=== PATIENT | female | born 1985 | race Caucasian/White ===

== ENCOUNTER 2017-04-14 20:11 | Emergency (ER) | payer OTHER ==
[2017-04-14 23:19] LABS: URINE BLOOD (Dip) POC Negative (NEGATIVE); URINE KETONES (Dip) POC Negative (NEGATIVE); URINE LEUKOCYTE EST (Dip) POC 2+ (NEGATIVE); URINE NITRITE (Dip) POC Negative (NEGATIVE); URINE TOTAL PROTEIN POC Negative (NEGATIVE)
[2017-04-14] MEDS: CEFTRIAXONE 1 GM INJ IM (23:57)
== END 2017-04-15 00:26 | disposition home or self-care (01) ==
LOC: FTE 04-15 00:26
DX: N30.00 Acute cystitis without hematuria (principal)
CPT/HCPCS: 81003; 96372; 99284-25

== ENCOUNTER 2017-09-25 02:05 | Emergency (ER) | payer OTHER ==
[2017-09-25] MEDS: ONDANSETRON 4 MG INJ IV (04:06)
[2017-09-25] MEDS: KETOROLAC 30 MG INJ IV (04:06)
[2017-09-25] MEDS: SOD CHLORIDE 0.9% 1,000 ML IV (04:07)
[2017-09-25 04:54] LABS: ADD MAN DIFF? NO
[2017-09-25 04:57] LABS: BASOPHILS % 0.3 % (0.0-2.0); EOSINOPHILS # 0.1 10^3/ul (0.0-0.5); EOSINOPHILS % 0.7 % (0.0-7.0); HEMATOCRIT 41.2 % (37.0-47.0); HEMOGLOBIN 13.6 g/dl (12.0-16.0); LYMPHOCYTES # 3.1 10^3/ul (0.8-2.9); LYMPHOCYTES % 26.2 % (15.0-51.0); MEAN CORPUSCULAR HEMOGLOBIN 29.7 pg (29.0-33.0); MONOCYTE # 0.5 10^3/ul (0.3-0.9); MONOCYTES % 4.6 % (0.0-11.0); NEUTROPHIL # 7.9 10^3/ul (1.6-7.5); NEUTROPHILS % 67.9 % (39.0-77.0); PLATELET COUNT 322 10^3/UL (140-415); RED BLOOD COUNT 4.58 10^6/ul (4.20-5.40); RED CELL DISTRIBUTION WIDTH 13.5 % (11.5-14.5)
[2017-09-25 04:57] LABS: WHITE BLOOD COUNT 11.7 10^3/ul (4.8-10.8)
[2017-09-25 05:13] LABS: ALANINE AMINOTRANSFERASE 134 IU/L (13-69); ALBUMIN 4.6 g/dl (3.3-4.9); ALBUMIN/GLOBULIN RATIO 1.39; ALKALINE PHOSPHATASE 90 IU/L (42-121); AMYLASE 55 U/L (11-123); ANION GAP 19 (8-16); ASPARTATE AMINO TRANSFERASE 103 IU/L (15-46); BILIRUBIN,INDIRECT 0.9 mg/dl (0-1.1); BILIRUBIN,TOTAL 0.9 mg/dl (0.2-1.3); BLOOD UREA NITROGEN 12 mg/dl (7-20); CALCIUM 10.2 mg/dl (8.4-10.2); CARBON DIOXIDE 24 mmol/L (21-31); CHLORIDE 102 mmol/L (97-110); CREATININE 0.58 mg/dl (0.44-1.00); GLUCOSE 200 mg/dl (70-220); LIPASE 107 U/L (23-300); POTASSIUM 3.9 mmol/L (3.5-5.1); SODIUM 141 mmol/L (135-144); TOTAL PROTEIN 7.9 g/dl (6.1-8.1)
[2017-09-25 05:23] LABS: ADD UMIC YES; UR ASCORBIC ACID NEGATIVE (NEGATIVE); UR BACTERIA MODERATE /HPF (NONE SEEN); UR BILIRUBIN (Dip) NEGATIVE (NEGATIVE); UR BLOOD (Dip) 2+ mg/dL (NEGATIVE); UR CLARITY SLIGHTLY CLOUDY (CLEAR); UR COLOR AMBER (YELLOW); UR GLUCOSE (Dip) NEGATIVE (NEGATIVE); UR KETONES (Dip) NEGATIVE (NEGATIVE); UR LEUKOCYTE ESTERASE (Dip) 3+ Leu/ul (NEGATIVE); UR NITRITE (Dip) POSITIVE (NEGATIVE); UR NONSQUAMOUS EPITHELIAL CELL 1 /HPF (NONE SEEN); UR RBC 7 /HPF (0-5); UR SPECIFIC GRAVITY (Dip) 1.003 (1.003-1.030); UR TOTAL PROTEIN (Dip) NEGATIVE (NEGATIVE); UR UROBILINOGEN (Dip) NEGATIVE (NEGATIVE); UR WBC > 182 /HPF (0-5)
[2017-09-25 05:31] LABS: INR 0.85; PROTIME 11.7 Sec (11.9-14.9); PT RATIO 0.9
[2017-09-25 05:38] LABS: TROPONIN-I < 0.010 ng/ml (0.000-0.120)
== END 2017-09-25 06:52 | disposition home or self-care (01) ==
LOC: FTE 02:05
DX: N39.0 Urinary tract infection, site not specified (principal); E11.9 Type 2 diabetes mellitus without complications; R10.2 Pelvic and perineal pain; Z79.84 Long term (current) use of oral hypoglycemic drugs
CPT/HCPCS: 36415; 74176; 76705; 80053; 81001; 81025; 82150; 83690; 84484; 85025; 85610; 85730; 87086; 93005; 96361; 96374; 96375; 99285-25

== ENCOUNTER 2017-12-17 04:07 | Emergency (ER) | payer OTHER ==
[2017-12-17] MEDS: ACETAMINOPHEN 325 MG TAB PO (05:29)
[2017-12-17] MEDS ORDERED: DEXAMETHASONE 10 MG/ML 1 ML INJ IM (05:30)
[2017-12-17] MEDS: DIPHENHYDRAMINE 50 MG INJ IM (05:30)
[2017-12-17] MEDS: DEXAMETHASONE 10 MG/ML 1 ML INJ IM (05:41)
== END 2017-12-17 06:25 | disposition home or self-care (01) ==
LOC: FTE 04:07
DX: S50.862A Insect bite (nonvenomous) of left forearm, initial encounter (principal); E11.9 Type 2 diabetes mellitus without complications; W57.XXXA Bitten or stung by nonvenomous insect and other nonvenomous arthropods, initial encounter; Y92.9 Unspecified place or not applicable
CPT/HCPCS: 96372; 99284-25

== ENCOUNTER 2017-12-30 18:30 | Emergency (ER) | payer OTHER ==
[2017-12-30 20:15] LABS: URINE BLOOD (Dip) POC 3+ (NEGATIVE); URINE KETONES (Dip) POC Trace (NEGATIVE); URINE LEUKOCYTE EST (Dip) POC 2+ (NEGATIVE); URINE NITRITE (Dip) POC Negative (NEGATIVE); URINE TOTAL PROTEIN POC Negative (NEGATIVE)
[2017-12-30] MEDS: HYDROCODONE/APAP (5/325) TAB PO (20:18)
[2017-12-30] MEDS: ACETAMINOPHEN 500 MG TAB PO (20:18)
[2017-12-30] MEDS ORDERED: IBUPROFEN 800 MG TAB PO (20:30)
[2017-12-30] MEDS ORDERED: ACETAMINOPHEN 325 MG TAB PO (20:30)
[2017-12-30] MEDS: CEFTRIAXONE 1 GM INJ IM (20:38)
== END 2017-12-30 20:53 | disposition home or self-care (01) ==
LOC: FTE 18:30
DX: N10 Acute pyelonephritis (principal); E11.9 Type 2 diabetes mellitus without complications
CPT/HCPCS: 81003; 81025; 96372; 99284-25

== ENCOUNTER 2017-12-31 15:29 | Inpatient (IN) | payer OTHER ==
[2017-12-31 16:57] LABS: ADD MAN DIFF? NO
[2017-12-31 16:58] LABS: ADD UMIC YES; UR ASCORBIC ACID NEGATIVE (NEGATIVE); UR BILIRUBIN (Dip) NEGATIVE (NEGATIVE); UR BLOOD (Dip) 2+ mg/dL (NEGATIVE); UR CLARITY SLIGHTLY CLOUDY (CLEAR); UR COLOR YELLOW (YELLOW); UR GLUCOSE (Dip) 1+ mg/dL (NEGATIVE); UR KETONES (Dip) NEGATIVE (NEGATIVE); UR LEUKOCYTE ESTERASE (Dip) 1+ Leu/ul (NEGATIVE); UR NITRITE (Dip) NEGATIVE (NEGATIVE); UR RBC 12 /HPF (0-5); UR SQUAMOUS EPITHELIAL CELL FEW /HPF (FEW); UR TOTAL PROTEIN (Dip) NEGATIVE (NEGATIVE); UR UROBILINOGEN (Dip) NEGATIVE (NEGATIVE); UR WBC 31 /HPF (0-5)
[2017-12-31] MEDS: IBUPROFEN 800 MG TAB PO (16:59)
[2017-12-31] MEDS: ACETAMINOPHEN 325 MG TAB PO (16:59)
[2017-12-31] MEDS: morphine 4 MG/ML VIAL IV (16:59)
[2017-12-31 17:00] LABS: WHITE BLOOD COUNT 14.4 10^3/ul (4.8-10.8)
[2017-12-31 17:00] LABS: BASOPHILS % 0.1 % (0.0-2.0); EOSINOPHILS % 0.1 % (0.0-7.0); HEMOGLOBIN 11.7 g/dl (12.0-16.0); LYMPHOCYTES # 1.2 10^3/ul (0.8-2.9); LYMPHOCYTES % 8.1 % (15.0-51.0); MEAN CORPUSCULAR HEMOGLOBIN 29.5 pg (29.0-33.0); MEAN CORPUSCULAR HGB CONC 32.5 g/dl (32.0-37.0); MEAN CORPUSCULAR VOLUME 90.9 fl (82.0-101.0); MEAN PLATELET VOLUME 10.2 fl (7.4-10.4); MONOCYTES % 6.7 % (0.0-11.0); NEUTROPHIL # 12.2 10^3/ul (1.6-7.5); NEUTROPHILS % 84.5 % (39.0-77.0); PLATELET COUNT 273 10^3/UL (140-415); RED BLOOD COUNT 3.96 10^6/ul (4.20-5.40); RED CELL DISTRIBUTION WIDTH 12.8 % (11.5-14.5)
[2017-12-31] MEDS: CEFTRIAXONE 1 GM/50 ML (PMX) 50 ML IVPB (17:00)
[2017-12-31] MEDS: SODIUM CHLORIDE 0.9% 1L BAG IV* (17:00)
[2017-12-31] MEDS: ONDANSETRON 4 MG INJ IV ×2 (17:00→20:05)
[2017-12-31 17:18] LABS: ALANINE AMINOTRANSFERASE 50 IU/L (13-69); ALBUMIN/GLOBULIN RATIO 1.37; ALKALINE PHOSPHATASE 95 IU/L (42-121); ANION GAP 12 (5-13); ASPARTATE AMINO TRANSFERASE 20 IU/L (15-46); BILIRUBIN,INDIRECT 0.5 mg/dl (0-1.1); BILIRUBIN,TOTAL 0.5 mg/dl (0.2-1.3); BLOOD UREA NITROGEN 6 mg/dl (7-20); CALCIUM 9.1 mg/dl (8.4-10.2); CARBON DIOXIDE 24 mmol/L (21-31); CHLORIDE 101 mmol/L (97-110); CREATININE 0.64 mg/dl (0.44-1.00); Estimated GFR > 60 mL/min (>60); GLUCOSE 212 mg/dl (70-220); LIPASE 27 U/L (23-300); POTASSIUM 3.9 mmol/L (3.5-5.1); SODIUM 137 mmol/L (135-144); TOTAL PROTEIN 6.9 g/dl (6.1-8.1)
[2017-12-31 17:19] LABS: INR 1.04; PROTIME 13.7 Sec (11.9-14.9); PT RATIO 1.1
[2017-12-31 17:20] LABS: AMYLASE < 30 U/L (11-123); PARTIAL THROMBOPLASTIN TIME 29.2 Sec (23.0-35.0)
[2017-12-31] MEDS ORDERED: ACETAMINOPHEN 325 MG TAB PO (18:30)
[2017-12-31] MEDS ORDERED: ALBUTEROL/IPRATROPIUM (NEB) 3 ML AMP HHN (18:30)
[2017-12-31] MEDS ORDERED: NACL 0.9% 3 ML SYG IV (18:30)
[2017-12-31] MEDS ORDERED: ONDANSETRON 4 MG INJ IV (18:30)
[2017-12-31] MEDS ORDERED: DOCUSATE SODIUM 100 MG CAP PO (18:30)
[2017-12-31] MEDS ORDERED: NA PHOSPHATE/BIPHOS 133 ML ENEMA PR (18:30)
[2017-12-31] MEDS ORDERED: MAGNESIUM HYDROXIDE 30ML CUP PO (18:30)
[2017-12-31] MEDS ORDERED: LORAZEPAM 2 MG INJ IV (18:30)
[2017-12-31] MEDS ORDERED: hydrALAzine 20 MG INJ IV (18:30)
[2017-12-31] MEDS ORDERED: GLUCAGON 1 MG INJ IM (19:00)
[2017-12-31] MEDS ORDERED: GLUCOSE GEL 15 GRAM TUBE PO ×2 (19:00)
[2017-12-31] MEDS ORDERED: DEXTROSE 50% 50 ML SYRINGE IV ×2 (19:00)
[2017-12-31] MEDS ORDERED: GLUCOSE GEL 15 GRAM TUBE BUCCAL (19:00)
[2017-12-31 19:06] LABS: FREE T4 (FREE THYROXINE) 0.98 ng/dl (0.79-2.35)
[2017-12-31] MEDS: morphine 2 MG INJ IV (20:05)
[2017-12-31] MEDS ORDERED: HEPARIN 5,000 UNIT/0.5 ML VIAL (21:32)
[2017-12-31] MEDS: HEPARIN 5,000 UNIT/1 ML VIAL SC (21:38)
[2017-12-31] MEDS: INSULIN ASPART [NOVOLOG] 3 ML PEN SC (21:38)
[2017-12-31] MEDS ORDERED: PIPER-TAZO 3.375 GM IV (PMX) 100 ML (22:57)
[2017-12-31] MEDS: PIPER-TAZO 3.375 GM IV (PMX) 100 ML IVPB (23:01)
[2017-12-31] MEDS: HYDROCODONE/APAP (5/325) TAB PO (23:01)
[2017-12-31] MEDS: SOD CHLORIDE 0.9% 1,000 ML IV (23:02)
[2018-01-01] MEDS: ACCU-CHEK XX (02:00)
[2018-01-01] MEDS: HYDROCODONE/APAP (5/325) TAB PO ×2 (04:07→08:41)
[2018-01-01 05:46] LABS: ADD MAN DIFF? NO
[2018-01-01 05:53] LABS: BASOPHILS % 0.2 % (0.0-2.0); EOSINOPHILS % 0.2 % (0.0-7.0); HEMATOCRIT 33.1 % (37.0-47.0); HEMOGLOBIN 10.5 g/dl (12.0-16.0); LYMPHOCYTES # 1.2 10^3/ul (0.8-2.9); LYMPHOCYTES % 11.2 % (15.0-51.0); MEAN CORPUSCULAR HEMOGLOBIN 29.7 pg (29.0-33.0); MEAN CORPUSCULAR HGB CONC 31.7 g/dl (32.0-37.0); MEAN CORPUSCULAR VOLUME 93.8 fl (82.0-101.0); MEAN PLATELET VOLUME 10.6 fl (7.4-10.4); MONOCYTE # 0.7 10^3/ul (0.3-0.9); MONOCYTES % 6.7 % (0.0-11.0); NEUTROPHIL # 8.7 10^3/ul (1.6-7.5); PLATELET COUNT 237 10^3/UL (140-415); RED BLOOD COUNT 3.53 10^6/ul (4.20-5.40); RED CELL DISTRIBUTION WIDTH 13.1 % (11.5-14.5)
[2018-01-01 05:53] LABS: WHITE BLOOD COUNT 10.7 10^3/ul (4.8-10.8)
[2018-01-01] MEDS: PANTOPRAZOLE (EC) 40 MG TAB PO (06:06)
[2018-01-01] MEDS: PIPER-TAZO 3.375 GM IV (PMX) 100 ML IVPB ×3 (06:06→17:55)
[2018-01-01 06:17] LABS: CHOL/HDL RATIO 2.6 RATIO; HDL CHOLESTEROL 38 mg/dl (34-82); LDL CHOLESTEROL,CALCULATED 37 mg/dl; TRIGLYCERIDES 125 mg/dl (0-149)
[2018-01-01 06:17] LABS: CHOLESTEROL 100 mg/dl (100-200)
[2018-01-01 06:19] LABS: ANION GAP 9 (5-13); BLOOD UREA NITROGEN 7 mg/dl (7-20); CALCIUM 8.2 mg/dl (8.4-10.2); CARBON DIOXIDE 25 mmol/L (21-31); CHLORIDE 106 mmol/L (97-110); CREATININE 0.67 mg/dl (0.44-1.00); Estimated GFR > 60 mL/min (>60); GLUCOSE 243 mg/dl (70-220); MAGNESIUM 1.8 mg/dl (1.7-2.5); PHOSPHORUS 2.6 mg/dl (2.5-4.9); POTASSIUM 3.9 mmol/L (3.5-5.1); SODIUM 140 mmol/L (135-144)
[2018-01-01] MEDS: SOD CHLORIDE 0.9% 1,000 ML IV ×3 (07:00→14:04)
[2018-01-01] MEDS ORDERED: HEPARIN 5,000 UNIT/0.5 ML VIAL ×2 (07:52→21:49)
[2018-01-01] MEDS: HEPARIN 5,000 UNIT/1 ML VIAL SC ×2 (08:27→22:11)
[2018-01-01] MEDS: INSULIN ASPART [NOVOLOG] 3 ML PEN SC ×4 (08:27→22:10)
[2018-01-01] MEDS: LORATADINE 10 MG TAB PO (08:29)
[2018-01-01] MEDS: ACETAMINOPHEN 325 MG TAB PO ×2 (13:35→21:57)
[2018-01-01] MEDS: morphine 2 MG INJ IV (18:13)
[2018-01-02] MEDS: SOD CHLORIDE 0.9% 1,000 ML IV ×2 (00:21→10:04)
[2018-01-02] MEDS: PIPER-TAZO 3.375 GM IV (PMX) 100 ML IVPB ×2 (00:21→05:11)
[2018-01-02] MEDS: ACCU-CHEK XX (02:51)
[2018-01-02] MEDS: PANTOPRAZOLE (EC) 40 MG TAB PO (05:11)
[2018-01-02] MEDS: ACETAMINOPHEN 325 MG TAB PO ×2 (05:17→11:32)
[2018-01-02 06:05] LABS: ADD MAN DIFF? NO
[2018-01-02 06:09] LABS: WHITE BLOOD COUNT 8.1 10^3/ul (4.8-10.8)
[2018-01-02 06:09] LABS: BASOPHILS % 0.4 % (0.0-2.0); EOSINOPHILS % 0.1 % (0.0-7.0); HEMATOCRIT 30.1 % (37.0-47.0); HEMOGLOBIN 9.7 g/dl (12.0-16.0); LYMPHOCYTES # 1.7 10^3/ul (0.8-2.9); LYMPHOCYTES % 21.3 % (15.0-51.0); MEAN CORPUSCULAR HEMOGLOBIN 29.7 pg (29.0-33.0); MEAN CORPUSCULAR HGB CONC 32.2 g/dl (32.0-37.0); MEAN PLATELET VOLUME 10.4 fl (7.4-10.4); MONOCYTE # 0.7 10^3/ul (0.3-0.9); MONOCYTES % 8.4 % (0.0-11.0); NEUTROPHIL # 5.6 10^3/ul (1.6-7.5); NEUTROPHILS % 69.3 % (39.0-77.0); PLATELET COUNT 239 10^3/UL (140-415); RED BLOOD COUNT 3.27 10^6/ul (4.20-5.40); RED CELL DISTRIBUTION WIDTH 12.9 % (11.5-14.5)
[2018-01-02 06:34] LABS: INR 1.07; PT RATIO 1.1
[2018-01-02 06:58] LABS: ALANINE AMINOTRANSFERASE 35 IU/L (13-69); ALBUMIN 3.1 g/dl (3.3-4.9); ALBUMIN/GLOBULIN RATIO 1.06; ALKALINE PHOSPHATASE 78 IU/L (42-121); ANION GAP 7 (5-13); ASPARTATE AMINO TRANSFERASE 16 IU/L (15-46); BILIRUBIN,INDIRECT 0.6 mg/dl (0-1.1); BILIRUBIN,TOTAL 0.6 mg/dl (0.2-1.3); BLOOD UREA NITROGEN 4 mg/dl (7-20); CALCIUM 8.7 mg/dl (8.4-10.2); CARBON DIOXIDE 26 mmol/L (21-31); CHLORIDE 107 mmol/L (97-110); CREATININE 0.52 mg/dl (0.44-1.00); Estimated GFR > 60 mL/min (>60); GLUCOSE 181 mg/dl (70-220); PHOSPHORUS 3.5 mg/dl (2.5-4.9); POTASSIUM 3.6 mmol/L (3.5-5.1); SODIUM 140 mmol/L (135-144)
[2018-01-02 07:33] LABS: TROPONIN-I < 0.012 ng/ml (0.000-0.120)
[2018-01-02] MEDS ORDERED: HEPARIN 5,000 UNIT/0.5 ML VIAL (07:57)
[2018-01-02] MEDS: LORATADINE 10 MG TAB PO (08:11)
[2018-01-02] MEDS: INSULIN ASPART [NOVOLOG] 3 ML PEN SC ×2 (08:17→13:24)
[2018-01-02] MEDS: HEPARIN 5,000 UNIT/1 ML VIAL SC (08:17)
[2018-01-02] MEDS: NITROGLYCERIN (SL) 0.4 MG TAB SL (10:31)
[2018-01-02] MEDS: CIPROFLOXACIN 500 MG TAB PO (11:48)
[2018-01-02] MEDS ORDERED: metFORMIN 500 MG TAB PO (18:00)
== END 2018-01-02 14:15 | disposition home or self-care (01) | DRG 872 ==
LOC: FTE 15:29 → 6WM 18:10
DX: A41.9 Sepsis, unspecified organism (principal); N10 Acute pyelonephritis; Z68.43 Body mass index [BMI] 50.0-59.9, adult; E11.65 Type 2 diabetes mellitus with hyperglycemia; E66.9 Obesity, unspecified; Z79.84 Long term (current) use of oral hypoglycemic drugs
CPT/HCPCS: 71045; 74176; 80048; 80053; 80061; 81001; 82150; 82962; 83036; 83605; 83690; 83735; 84100; 84439; 84443; 84484; 84703; 85025; 85610; 85730; 87040; 87086; 87400; 93005; 96365; 96375; 99285-25

== ENCOUNTER 2018-04-20 04:01 | Emergency (ER) | payer OTHER ==
[2018-04-20 05:36] LABS: URINE BLOOD (Dip) POC 3+ (NEGATIVE); URINE GLUCOSE (Dip) POC Negative (NEGATIVE); URINE KETONES (Dip) POC Negative (NEGATIVE); URINE LEUKOCYTE EST (Dip) POC 2+ (NEGATIVE); URINE NITRITE (Dip) POC Negative (NEGATIVE); URINE TOTAL PROTEIN POC 1+ (NEGATIVE)
== END 2018-04-20 05:53 | disposition home or self-care (01) ==
LOC: FTE 04:01
DX: N39.0 Urinary tract infection, site not specified (principal); Z79.84 Long term (current) use of oral hypoglycemic drugs
CPT/HCPCS: 81003; 81025; 99283

== ENCOUNTER 2018-06-04 08:44 | Emergency (ER) | payer SELFPAY, OTHER ==
[2018-06-04] MEDS: ONDANSETRON 4 MG INJ IV (10:01)
[2018-06-04] MEDS: SOD CHLORIDE 0.9% 1,000 ML IV (10:01)
[2018-06-04 10:07] LABS: ADD MAN DIFF? NO
[2018-06-04 10:09] LABS: WHITE BLOOD COUNT 8.8 10^3/ul (4.8-10.8)
[2018-06-04 10:09] LABS: BASOPHILS % 0.5 % (0.0-2.0); EOSINOPHILS # 0.1 10^3/ul (0.0-0.5); EOSINOPHILS % 0.8 % (0.0-7.0); HEMOGLOBIN 10.9 g/dl (12.0-16.0); LYMPHOCYTES # 2.5 10^3/ul (0.8-2.9); LYMPHOCYTES % 28.5 % (15.0-51.0); MEAN CORPUSCULAR HGB CONC 32.1 g/dl (32.0-37.0); MEAN CORPUSCULAR VOLUME 84.4 fl (82.0-101.0); MEAN PLATELET VOLUME 10.6 fl (7.4-10.4); MONOCYTE # 0.4 10^3/ul (0.3-0.9); MONOCYTES % 4.6 % (0.0-11.0); NEUTROPHIL # 5.7 10^3/ul (1.6-7.5); NEUTROPHILS % 64.9 % (39.0-77.0); PLATELET COUNT 349 10^3/UL (140-415); RED BLOOD COUNT 4.03 10^6/ul (4.20-5.40); RED CELL DISTRIBUTION WIDTH 13.2 % (11.5-14.5)
[2018-06-04 10:17] LABS: UR BACTERIA FEW /HPF (NONE SEEN); UR MUCUS FEW /HPF (NONE SEEN); UR RBC > 182 /HPF (0-5); UR SQUAMOUS EPITHELIAL CELL FEW /HPF (FEW); UR WBC 69 /HPF (0-5)
[2018-06-04 10:30] LABS: ALANINE AMINOTRANSFERASE 53 IU/L (13-69); ALBUMIN 4.2 g/dl (3.3-4.9); ALBUMIN/GLOBULIN RATIO 1.27; ALKALINE PHOSPHATASE 93 IU/L (42-121); ANION GAP 11 (5-13); ASPARTATE AMINO TRANSFERASE 41 IU/L (15-46); BILIRUBIN,INDIRECT 0.5 mg/dl (0-1.1); BILIRUBIN,TOTAL 0.5 mg/dl (0.2-1.3); BLOOD UREA NITROGEN 9 mg/dl (7-20); CALCIUM 9.8 mg/dl (8.4-10.2); CARBON DIOXIDE 24 mmol/L (21-31); CHLORIDE 103 mmol/L (97-110); CREATININE 0.49 mg/dl (0.44-1.00); Estimated GFR > 60 mL/min (>60); GLUCOSE 296 mg/dl (70-220); LIPASE 81 U/L (23-300); POTASSIUM 4.1 mmol/L (3.5-5.1); SODIUM 138 mmol/L (135-144); TOTAL PROTEIN 7.5 g/dl (6.1-8.1)
[2018-06-04 10:36] LABS: ADD UMIC YES; UR ASCORBIC ACID NEGATIVE (NEGATIVE); UR BILIRUBIN (Dip) NEGATIVE (NEGATIVE); UR BLOOD (Dip) 3+ mg/dL (NEGATIVE); UR BUDDING YEAST FEW /HPF (NONE SEEN); UR CLARITY SLIGHTLY CLOUDY (CLEAR); UR COLOR YELLOW (YELLOW); UR GLUCOSE (Dip) 3+ mg/dL (NEGATIVE); UR KETONES (Dip) NEGATIVE (NEGATIVE); UR LEUKOCYTE ESTERASE (Dip) NEGATIVE Leu/ul (NEGATIVE); UR NITRITE (Dip) NEGATIVE (NEGATIVE); UR SPECIFIC GRAVITY (Dip) 1.015 (1.003-1.030); UR TOTAL PROTEIN (Dip) 1+ mg/dl (NEGATIVE); UR UROBILINOGEN (Dip) NEGATIVE (NEGATIVE)
[2018-06-04] MEDS: KETOROLAC 30 MG INJ IV (10:50)
== END 2018-06-04 11:51 | disposition home or self-care (01) ==
LOC: FTE 08:44
DX: R42 Dizziness and giddiness (principal); E11.9 Type 2 diabetes mellitus without complications; Z79.84 Long term (current) use of oral hypoglycemic drugs
CPT/HCPCS: 36415; 80053; 81001; 81025; 83690; 85025; 96374; 96375; 99284-25

== ENCOUNTER 2018-07-01 13:04 | Emergency (ER) | payer OTHER ==
[2018-07-01] MEDS: HYDROCODONE/APAP (5/325) TAB PO (14:14)
[2018-07-01] MEDS: KETOROLAC 30 MG INJ IM (14:27)
== END 2018-07-01 15:05 | disposition home or self-care (01) ==
LOC: FTE 13:04
DX: S43.402A Unspecified sprain of left shoulder joint, initial encounter (principal); X50.0XXA Overexertion from strenuous movement or load, initial encounter; Y92.89 Other specified places as the place of occurrence of the external cause
CPT/HCPCS: 81025; 96372; 99284-25

== ENCOUNTER 2018-07-29 17:10 | Emergency (ER) | payer OTHER ==
[2018-07-29] MEDS: HYDROCODONE/APAP (5/325) TAB PO (19:04)
[2018-07-29 19:15] LABS: ADD UMIC YES; UR ASCORBIC ACID NEGATIVE (NEGATIVE); UR BACTERIA FEW /HPF (NONE SEEN); UR BILIRUBIN (Dip) NEGATIVE (NEGATIVE); UR BLOOD (Dip) NEGATIVE (NEGATIVE); UR CLARITY CLEAR (CLEAR); UR COLOR YELLOW (YELLOW); UR GLUCOSE (Dip) 2+ mg/dL (NEGATIVE); UR KETONES (Dip) NEGATIVE (NEGATIVE); UR LEUKOCYTE ESTERASE (Dip) 1+ Leu/ul (NEGATIVE); UR NITRITE (Dip) POSITIVE (NEGATIVE); UR RBC 3 /HPF (0-5); UR SPECIFIC GRAVITY (Dip) 1.013 (1.003-1.030); UR TOTAL PROTEIN (Dip) NEGATIVE (NEGATIVE); UR UROBILINOGEN (Dip) NEGATIVE (NEGATIVE); UR WBC 12 /HPF (0-5)
== END 2018-07-29 21:52 | disposition home or self-care (01) ==
LOC: FTE 17:10
DX: N30.00 Acute cystitis without hematuria (principal)
CPT/HCPCS: 76856; 81001; 81025; 99284-25